=== PATIENT | female | born 1995 | race Caucasian/White ===

== ENCOUNTER 2020-03-18 23:14 | Outpatient (CLI) | payer OTHER ==
[~2020-03-18] VITALS: Ht 157.5 cm; Wt 101.8 kg
[2020-03-18 23:25] VITALS: BP 147/75
[2020-03-18 23:56] LABS: MICROSCOPIC INDICATED
[2020-03-19 00:02] LABS: CREATININE,URINE RANDOM 18.6 mg/dL
== END 2020-03-19 00:32 | disposition home or self-care (01) ==
LOC: LDOP 23:14
PROVIDERS: ATTEND Obstetrics & Gynecology
DX: O36.8130 Decreased fetal movements, third trimester, not applicable or unspecified (principal); Z3A.36 36 weeks gestation of pregnancy
CPT/HCPCS: 59025; 81001; 82570; 84156; 87086; 99201; G0463

== ENCOUNTER 2021-03-21 16:58 | Outpatient (CLI) | payer MEDICAID, OTHER ==
[~2021-03-21 16:58] MED LIST: FERR324T18 PO; HYDR-2214 PO; IBUP-1223 PO; SENN-18 PO
== END 2021-03-21 19:55 | disposition home or self-care (01) ==
LOC: LDOP 16:58
PROVIDERS: ATTEND Obstetrics & Gynecology
DX: O26.893 Other specified pregnancy related conditions, third trimester (principal); Z3A.37 37 weeks gestation of pregnancy
CPT/HCPCS: 59025

== ENCOUNTER 2021-03-21 17:36 | Emergency (ER) | payer MEDICAID, OTHER ==
[~2021-03-21] VITALS: Ht 157.5 cm; Wt 101.6 kg
--- NOTE | 2021-03-21 18:00 | NUR ---
PT SENT FROM L&D FOR PALPITATIONS. PT DENIES CP OR SOB. SOME ANXIETY PRESENT. L&D CLEARED. PT ON BUSINESS PROCESS COORDINATOR. SINUS TACH 120
[2021-03-21] MEDS ORDERED: SODIUM CHLORIDE 0.9% 1,000ML IVBOLUS ONE (18:30)
[2021-03-21] MEDS ORDERED: SODIUM CHLORIDE FLUSH 10ML SYR IVF ONE (18:30)
--- NOTE | 2021-03-21 18:30 | NUR ---
PIV, IVF COMPLETE
[2021-03-21 18:41] LABS: BASOPHILS % (AUTO) 1 % (0-1); EOSINOPHILS % (AUTO) 1 % (1-7); LYMPHOCYTES % (AUTO) 19 % (22-44); MD NO; MEAN CORPUSCULAR HEMOGLOBIN 27.9 pg (27.0-34.8); MEAN CORPUSCULAR HGB CONC 33.5 g/dL (32.4-35.8); MEAN PLATELET VOLUME 10.4 fL (7.4-10.4); MONOCYTES % (AUTO) 7 % (2-9); NEUTROPHILS % (AUTO) 73 % (42-75); PLATELET COUNT 196 x10^3/uL (130-400); RED BLOOD COUNT 3.93 x10^6/uL (3.82-5.3); RED CELL DISTRIBUTION WIDTH 14.5 % (9.6-15.2)
--- NOTE | 2021-03-21 18:46 | NUR ---
Report from BEE Ratliff. This RN to assume care.
--- NOTE | 2021-03-21 18:47 | NUR ---
REPORT TO EDWINA
[2021-03-21 18:51] LABS: ALBUMIN 2.4 g/dL (3.4-5.0); ANION GAP 10 mmol/L (5-15); CALCIUM 8.4 mg/dL (8.5-10.1); CHLORIDE 111 mmol/L (98-107); CREATININE 0.53 mg/dL (0.55-1.02)
--- NOTE | 2021-03-21 19:25 | NUR ---
Patient to CT.
--- NOTE | 2021-03-21 19:44 | NUR ---
Patient returned from Ct.
[2021-03-21 19:46] VITALS: BP 123/86
[2021-03-21] MEDS ORDERED: OMNIPAQUE 350 MG/ML, 100ML BOTTLE ONE (20:00)
--- NOTE | 2021-03-21 20:43 | NUR ---
Discharge instructions given. All questions and concerns addressed. Patient ambulatory with a steady gait. Belongings with patient.
== END 2021-03-21 20:56 | disposition home or self-care (01) ==
LOC: ED 20:52
DX: O99.891 Other specified diseases and conditions complicating pregnancy (principal); R00.0 Tachycardia, unspecified; R00.2 Palpitations; O24.419 Gestational diabetes mellitus in pregnancy, unspecified control; Z3A.36 36 weeks gestation of pregnancy
CPT/HCPCS: 36415; 71275; 80048; 82040; 85025; 93005; 99285; J7030; Q9967